=== PATIENT | female | born 1945 | race Caucasian/White ===

== ENCOUNTER → 2019-04-14 | Outpatient (CLI) | payer MEDICARE ==
[~2019-04-14] MED LIST: REGADENOSON 0.4 MG/5 ML DISP.SYRIN. IV ONE
--- NOTE | 2019-04-15 11:38 | RAD ---
MR#: [id number] Date of Study: 04/15/2019 Ordering Physician: HODAN PHILLIPS, Referring Physician: JOHN COPELAND Tech: ASIM Dover, ARRT (R) (N) APPROVED REPORT Test Type: Pharmacological Stress Nurse/Tech: Meg Tang R.N. Test Indications: dyspnea on exertion, diaphoresis Cardiac History: Family history, Diabetes, Hypertension Medications: See Electronic Medical Record Medical History: See Electronic Medical Record Resting ECG: NSR Resting Heart Rate: 63 bpm Resting Blood Pressure: 151/73mmHg Pretest Chest Pain: No chest pain Nurse/Tech Notes S1S2, lungs sound clear Consent: The procedure was explained to the patient in lay terms. Informed consent was witnessed. Robert eout was entered into [facility]. History and Stress Test performed by Meg Tang R.N. Pharm. Details Pharmacologic stress testing was performed using 0.4mg per 5ml of regadenoson given intravenously ove r 7-10 seconds. Stress Symptoms No chest pain or symptoms. heart rate went to 40 right after génesis injection POST EXERCISE Reason for Termination: Infusion complete Target HR: 125 Max HR: 97 bpm Max Blood Pressure: 149/76mmHg Blood Pressure response to exercise: Normal blood pressure response during stress. Chest Pain: No. Arrhythmia: No. ST Change: No. INTERPRETATION Stress EKG Conclusion: Baseline EKG showed sinus rhythm. No ischemic changes at peak stress. No arr hythmias. Imaging Protocol IMAGE PROTOCOL: Rest Tc-99m/stress Tc-99m 2 days Rest: Stress: Viability: Radiopharm.Tc99m YqfsectfiKb82n Sestamibi Dose30.9mCi 32mCi Img Date 04/14/2019 04/15/2019 Inj-Img [id number]. 60min. Rest Admin Site:IV - Right HandAdministrator:ASIM Dover, ARRT (R)(N) Stress Admin Site: IV - Left AntecubitalAdministrator: RT Nandini (R)(N) STRESS DATA End Diast. Vol.109.0mlAv. Heart Rate66.0bpm End Syst. Vol.32.0mlCO Index BSA0.0L/min Myocardial Phuy507.0gEject. Egowzxcg82.0% Stress Rates Pk. Fill Rate1.62EDV/secLVtime Pk. Fill 178.51msec Pk. Empty Rate3.57ESV/secLVtime Pk. Shgxz825.33msec 1/3 Pk. Fill1.28EDV/sec Stress Scores Regional WT0.00Summed WT0.00 Regional WM0.00Summed WM0.00 LV Perfusion scintigraphic images showed rpznx-as-clqypenz reversible defect involving the anteroapical wall consi stent with ischemia. Wall Motion Normal left ventricle systolic function with ejection fraction calculated at 71%. LV Perf. Quant 17 Seg. SSS6.00 17 Seg. SRS2.00 17 Seg. SDS4.00 Stress Defect Extent (% LAD)31.30Rest Defect Extent (% LAD)0.00Rev. Defect Extent (% LAD)27.50 Stress Defect Extent (% LCX) 0.00Rest Defect Extent (% LCX)13.80Rev. Defect Extent (% LCX)0.00 Stress Defect Extent (% RCA)0.00Rest Defect Extent (% RCA)0.00Rev. Defect Extent (% RCA)0.00 Stress Defect Extent (% SUDHEER)13.50Rest Defect Extent (% SUDHEER)2.40Rev. Defect Extent (% SUDHEER)11.10 Conclusion 1. Regadenoson cardioisotope stress test showed qgwka-uy-rsgnxmen amount of anteroapical wall ischemi a. 2. Normal left ventricular systolic function with ejection fraction calculated at 71%. 3. Intermediate risk for cardiac events. Signed by : Braxton Richardson, Electronically Approved : 04/15/2019 11:38:31
== END | disposition home or self-care (01) ==
LOC: NM 08:49
PROVIDERS: ATTEND Internal Medicine Cardiovascular Disease
DX: I25.89 Other forms of chronic ischemic heart disease (principal); E11.9 Type 2 diabetes mellitus without complications; I10 Essential (primary) hypertension
CPT/HCPCS: 78452; A9500

== ENCOUNTER 2019-06-16 09:24 | Observation (INO) | payer MEDICARE ==
[~2019-06-16] VITALS: Ht 165.1 cm; Wt 131.3 kg
[2019-06-16] VITALS (19 sets, daily range): BP systolic 126–197; BP diastolic 63–93
[~2019-06-16 09:24] MED LIST changes: +HYDROmorphone 2 MG/ML VIAL IV PRN; +IV RINGERS,LACTATED 1000ML 1,000 ML IV SCH; +MORPHINE SULFATE 2 MG/ML VIAL. IV PRN; +ONDANSETRON PF 4 MG/2 ML VIAL. IV PRN; +PROCHLORPERAZINE 10 MG/2 ML VIAL. IV PRN; -REGADENOSON 0.4 MG/5 ML DISP.SYRIN. IV ONE; +fentaNYL PF VIAL 100 MCG/2 ML VIAL IV PRN
[2019-06-16 10:27] LABS: CALCIUM 9.4 mg/dL (8.5-10.1); CREATININE 0.9 mg/dL (0.6-1.0); GFR 61.5; POTASSIUM 4.2 mmol/L (3.5-5.1)
[2019-06-16 10:36] LABS: HEMATOCRIT 41.9 % (36.0-47.0); HEMOGLOBIN 14.1 g/dL (12.0-15.5); RED BLOOD COUNT 4.93 x10^6/uL (3.50-5.40); RED CELL DISTRIBUTION WIDTH 15.5 % (11.5-14.5); WHITE BLOOD COUNT 4.7 x10^3/uL (4.0-11.0)
[2019-06-16 10:45] LABS: PROTHROMBIN TIME PATIENT 13.4 SEC (11.7-14.0)
[2019-06-16] MEDS ORDERED: CALC500T30 PO (10:47)
[2019-06-16] MEDS ORDERED: LOSA25TA54 PO (10:47)
[2019-06-16] MEDS ORDERED: GLIP5TAB10 PO (10:47)
[2019-06-16] MEDS ORDERED: CHOL500021 PO (10:47)
[2019-06-16] MEDS ORDERED: LOVA40TA2 PO (10:47)
[2019-06-16] MEDS ORDERED: GLUC100018 PO (10:47)
[2019-06-16] MEDS ORDERED: ASPI-630 PO (10:47)
[2019-06-16] MEDS ORDERED: BLAC160C PO (10:47)
[2019-06-16] MEDS ORDERED: NAPR220C4 PO (10:47)
[2019-06-16] MEDS ORDERED: LEVO88TA4 PO (10:47)
[2019-06-16] MEDS ORDERED: LIDOCAINE 1% Multi-Dose 20 ML VIAL. ONE (11:52)
[2019-06-16] MEDS ORDERED: IOHEXOL 300 MG/ML 100ML VIAL. ONE ×2 (11:52→13:54)
[2019-06-16] MEDS ORDERED: MIDAZOLAM HCL/PF 2 MG/2 ML VIAL. ONE (12:59)
[2019-06-16] MEDS ORDERED: HEPARIN for IV BOLUS 10,000 UNIT/10 ML VIAL. ONE (12:59)
[2019-06-16] MEDS ORDERED: fentaNYL PF VIAL 100 MCG/2 ML VIAL ONE (12:59)
[2019-06-16] MEDS ORDERED: NITROGLYCERIN OINT 1 GM PACKET. ONE (12:59)
[2019-06-16] MEDS ORDERED: VERAPAMIL 5 MG/2 ML VIAL. ONE (13:00)
[2019-06-16] MEDS ORDERED: NITROGLYCERIN 200 MCG/2 ML SYRINGE FOR CATH/VASC LAB. ONE (13:01)
[2019-06-16] MEDS ORDERED: NITROGLYCERIN PREMIX 250 ML IV ONE ×2 (13:06→14:45)
[2019-06-16] MEDS ORDERED: VERAPAMIL 5 MG/2 ML VIAL. IART ONE (13:30)
[2019-06-16] MEDS ORDERED: NITROGLYCERIN 200 MCG/2 ML SYRINGE FOR CATH/VASC LAB. IART ONE (13:30)
[2019-06-16] MEDS ORDERED: LIDOCAINE 1% Multi-Dose 20 ML VIAL. INJ ONE (13:30)
[2019-06-16] MEDS ORDERED: IOHEXOL 300 MG/ML 100ML VIAL. IART ONE (13:30)
[2019-06-16] MEDS ORDERED: MIDAZOLAM HCL/PF 2 MG/2 ML VIAL. IV ONE (13:30)
[2019-06-16] MEDS ORDERED: fentaNYL PF VIAL 100 MCG/2 ML VIAL IV ONE (13:30)
[2019-06-16] MEDS ORDERED: HEPARIN for IV BOLUS 10,000 UNIT/10 ML VIAL. IART ONE (13:30)
[2019-06-16] MEDS ORDERED: BIVALIRUDIN 250 MG VIAL. IV ONE ×2 (13:39→14:15)
[2019-06-16] MEDS ORDERED: LOSARTAN POTASSIUM 25 MG TABLET. PO ONE (14:15)
[2019-06-16] MEDS ORDERED: TICAGRELOR 90 MG TABLET. PO ONE (14:15)
[2019-06-16] MEDS ORDERED: IV NORMAL SALINE 1000ML BAG 1,000 ML IV SCH (14:25)
[2019-06-16] MEDS ORDERED: TICAGRELOR 90 MG TABLET. ONE (14:26)
[2019-06-16] MEDS ORDERED: NITROGLYCERIN SUBLINGUAL 0.4 MG BOTTLE OF 25. SL PRN (14:30)
[2019-06-16] MEDS ORDERED: fentaNYL PF VIAL 100 MCG/2 ML VIAL IV PRN (14:30)
[2019-06-16] MEDS ORDERED: LIDOCAINE 2% 100 MG/5 ML SYRINGE. IV PRN (14:30)
[2019-06-16] MEDS ORDERED: ACETAMINOPHEN 325 MG TABLET. PO PRN (14:30)
[2019-06-16] MEDS ORDERED: 0.9 % SODIUM CHLORIDE 10 ML DISP.SYRIN. IV PRN (14:30)
[2019-06-16] MEDS ORDERED: AMIODARONE 150 MG in IV DEXTROSE 5% 100ML 100 ML IV PRN (14:30)
[2019-06-16] MEDS ORDERED: ATROPINE 0.5 MG/5 ML DISP.SYRINGE. IV PRN (14:30)
--- NOTE | 2019-06-16 14:50 | NUR ---
The patient, JACOB DICKERSON I, 73 y/o, F admitted by HODAN PHILLIPS MD, was given written information regarding hospital policies, unit procedures and contact persons. 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 TR band and arm board in place. NS infusing at 50 mls/hr and nitro gtt at 6 mls/hr. No complaints of chest pain. Patient's spouse at bedside. Call light within reach. Will continue to monitor.
--- NOTE | 2019-06-16 15:29 | CARD ---
MR#: [id number] Date of Study: 06/16/2019 Ordering Physician: HODAN GOMEZ, Referring Physician: HODAN GOMEZ, Tech: JULIO CONNAUKERRYDARREN RTR APPROVED REPORT Procedures Selective coronary angiogram Bare-metal stent placement to the LAD The patient is a 73-year-old female with episodes of progressive dyspnea on exertion. Outpatient work up included a nuclear stress test that showed reversible ischemia in the anterior septal region. Afte r discussion a cardiac catheterization was recommended. Risks and benefits were discussed with the chiquis bedoya. She agreed to proceed. After informed consent was obtained the patient was brought to the heart catheterization lab. The are a of the right radial artery was prepared in the usual manner after an acceptable Tad's test. A Apervita ck catheter system was used to enter the right radial artery, a wire placed and a 6 Mauritanian sheath tereso val over the wire. The standard mixture of antispasm medications and heparin was administered. Using a J-wire, a 6 Mauritanian JL 3.5 catheter was advanced to the ascending aorta. This would not engage the left system cleanly and was replaced with a JL 4 diagnostic catheter which was able to engage the ves maggie and sequential injections in various views were obtained. Using an ocoj-bwj-smob exchange, a 6 Fr ench JR4 diagnostic catheter was used to engage the right coronary system and sequential injections i n various views were obtained. Review of the patient's images showed a subtotal lesion in the mid LAD . He proceeded to revascularize. Angiomax as per protocol was administered. A 6 Mauritanian XB 3.5 guide was used to engage the left system but tended to subselectively engage the left circumflex and clean pictures of the LAD were not able to be obtained. It was therefore replaced with a 6 Mauritanian JL4 guide. This was able to more appropriat natalee engage the LAD. The mid subtotal lesion was crossed with a PT choice wire. It was initially dilat ed with a 3.5 x 15 mm balloon with a series of 6 inflations to a maximum pressure of 8 clive for maximu m time of 15 seconds. Following this a 2.75 x 18 resolute dejuan drug-eluting stent was deployed with o ne inflation at 16 clive for 16 seconds. Residual lesion was 0%. The wire and guiding system were remov ed from the patient. The sheath was removed and the site sealed with a TR band. The patient was moved to the holding area in stable condition. Findings. Hemodynamics. Aortic root pressure of 164/88. Coronaries. Left main. The left main was a very large vessel with a mid 15% lesion. Left anterior descending. The LAD was a moderate size vessel. It had a very proximal 10-15% lesion. F ollowing this there appeared to be a previously placed widely patent stent. In its midportion the LAD had a subtotal lesion. Left circumflex. The left circumflex was a very large and dominant vessel. It had a mid to distal les ion of 15%. Right coronary artery. The right coronary was a moderate to moderately small vessel. It had a proxima l 25-30% lesion. <Conclusion> Severe single-vessel coronary disease with a subtotal lesion in the mid LAD. Mild disease in the left circumflex and right coronary arteries. Successful bare metal stent placement to the mid LAD with a residual lesion of 0%. Signed by : Hodan Gomez MD Electronically Approved : 06/16/2019 15:29:19
--- NOTE | 2019-06-16 16:11 | EKG ---
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
[2019-06-16] MEDS: METOPROLOL TART IMMED RELEASE 25 MG TABLET. PO SCH (21:00)
[2019-06-16] MEDS ORDERED: ATORVASTATIN CALCIUM 20 MG TABLET PO SCH (21:00)
[2019-06-17 03:00] VITALS: BP 132/61
[2019-06-17 03:38] VITALS: BP 164/69
[2019-06-17 07:00] VITALS: BP 158/74
--- NOTE | 2019-06-17 07:21 | EKG ---
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
[2019-06-17] MEDS ORDERED: ASPIRIN ENTERIC COATED 81 MG TABLET.DR. PO SCH (08:00)
[2019-06-17] MEDS: METOPROLOL TART IMMED RELEASE 25 MG TABLET. PO SCH (08:43)
[2019-06-17] MEDS ORDERED: TICAGRELOR 90 MG TABLET. PO SCH (09:00)
[2019-06-17] MEDS ORDERED: LOSARTAN POTASSIUM 50 MG TABLET. PO SCH (09:00)
[2019-06-17] MEDS ORDERED: hydrALAZINE 20 MG/ML VIAL. IVP ONE ×2 (10:00→11:30)
[2019-06-17 11:11] VITALS: BP 206/90
[2019-06-17] MEDS ORDERED: CHLORTHALIDONE 25 MG TABLET. PO ONE (11:30)
[2019-06-17] MEDS ORDERED: LOSARTAN POTASSIUM 50 MG TABLET. PO ONE (11:30)
[2019-06-17] MEDS ORDERED: amLODIPine BESYLATE 5 MG TABLET PO SCH (13:00)
[2019-06-17] MEDS ORDERED: amLODIPine BESYLATE 10 MG TABLET PO SCH (13:15)
[2019-06-17 15:00] VITALS: BP 163/76
[2019-06-17] MEDS ORDERED: ISOSORBIDE MONONITRATE ER 30 MG TAB.ER.24H PO SCH (15:15)
[2019-06-17 15:38] VITALS: BP 176/81
[2019-06-17] MEDS ORDERED: AMLO10TA8 PO (17:00)
[2019-06-17] MEDS ORDERED: ISOS30TA4 PO (17:00)
[2019-06-17] MEDS ORDERED: TICA90TA PO (17:00)
[2019-06-17] MEDS ORDERED: METO25TA4 PO (17:00)
[2019-06-17] MEDS ORDERED: LOSA-73 PO (17:00)
--- NOTE | 2019-06-17 17:02 | DISCH ---
DISCHARGE INSTRUCTIONS Condition on Discharge Condition on Discharge: Stable Activity After Discharge Activity Instructions for Disc: Activity as tolerated Bathing Instructions: Shower-keep dressing dry, No Tub Bath until see (for 2 weeks) Lifting Instructions after Dis: No heavy lifting, No pulling or pushing, Do not lift >10 pounds Driving Instructions after Dis: Do not drive (for 5 days ) Weight Bearing Status after Di: As tolerated (see dignosis specific instru ctions) Diet after Discharge Diet after Discharge: Cardiac Contacting the after DC Call your doctor for: Concerns you may have BAR LUEVANO APRN Jun 17, 2019 17:02
--- NOTE | 2019-06-17 17:14 | PDOC3 ---
Discharge Summary Visit Information Date of Admission: Jun 16, 2019 Date of Discharge: Jun 17, 2019 Admitting Diagnosis Comment: Dyspnea upon exertion Hypertension Hyperlipidemia Diabetes, II Abnormal MPI Final Diagnosis CAD Hypertension Hyperlipidemia Diabetes, II Brief Hospital Course Allergies Allergies Coded Allergies Type Severity Reaction Last Updated Verified No Known Drug Allergies 04/14/19 No Vital Signs Vital Signs Date Time Temp Pulse Resp B/P (MAP) Pulse Ox O2 Delivery O2 Flow Rate FiO2 06/17/19 15:38 81 176/81 06/17/19 15:00 98.1 18 96 Room Air 98.1 06/17/19 08:00 2.0 Lab Results Laboratory Tests Test 06/16/19 10:12 White Blood Count 4.7 x10^3/uL (4.0-11.0) Red Blood Count 4.93 x10^6/uL (3.50-5.40) Hemoglobin 14.1 g/dL (12.0-15.5) Hematocrit 41.9 % (36.0-47.0) Mean Corpuscular Volume 85 fL (79-100) Mean Corpuscular Hemoglobin 29 pg (25-35) Mean Corpuscular Hemoglobin Concent 34 g/dL (31-37) Red Cell Distribution Width 15.5 % (11.5-14.5) Platelet Count 128 x10^3/uL (140-400) Prothrombin Time 13.4 SEC (11.7-14.0) Prothromb Time International Ratio 1.1 (0.8-1.1) Sodium Level 142 mmol/L (136-145) Potassium Level 4.2 mmol/L (3.5-5.1) Chloride Level 106 mmol/L (98-107) Carbon Dioxide Level 27 mmol/L (21-32) Anion Gap 9 (6-14) Blood Urea Nitrogen 15 mg/dL (7-20) Creatinine 0.9 mg/dL (0.6-1.0) Estimated GFR (Cockcroft-Gault) 61.5 Glucose Level 156 mg/dL (70-99) Calcium Level 9.4 mg/dL (8.5-10.1) Brief Hospital Course Ms. Burr is a 73 old female who presented to our office with complaints of progressive dyspnea upon exertion. Underwent stress test that was notable for a mpide-qa-hfsmuoso amount of anteroapical wall ischemia. Patient was brought el ectively for cardiac catheterization, which revealed severe single-vessel coronary disease with a subtotal lesion in the mid LAD along with mild disease in the left circumflex and right coronary arteries. Underwent successful bare metal stent placement to the mid LAD with a residual lesion of 0%. Tolerated overnight without acute complications. Blood pressure elevated post-procedure and was controlled with nitro gtt. Nitro gtt titrated off following addition or oral hypertensives. See med list below for details. No acute events on telemetry. Right radial arteriotomy site soft, clean, and dry. No hematoma. Bilateral neurovascular status intact. Lungs CTA. Patient discharged in stable condition following blood pressure control. Discharge Information Condition at Discharge: Improved Follow Up: Weeks ([address] Major ) Disposition/Orders: D/C to Home Scheduled Aspirin (Aspirin) 81 Mg Tab.chew, 1 TAB PO DAILY for , #30 Ref 3 (Reported) Entered as Reported by: JACOB GORDON RN on 06/16/191046 Last Taken: Unknown Dose on 06/16/19 Last Action: New Order on 06/16/191046 by JACOB GORDON RN Black Cohosh Root Extract (Black Cohosh) 160 Mg Capsule, 160 MG PO DAILY for supplement, (Reported) Entered as Reported by: JACOB GORDON RN on 06/16/191046 Last Taken: Unknown Dose on 06/16/19 Last Action: New Order on 06/16/191046 by JACOB GORDON RN Calcium Carbonate (Calcium) 500 Mg Tablet, 500 MG PO BID for supplement, (Reported) Entered as Reported by: JACOB GORDON RN on 06/16/191046 Last Taken: Unknown Dose on 06/16/19 Last Action: New Order on 06/16/191046 by JACOB GORDON RN Cholecalciferol (Vitamin D3) (D3-50) 50,000 Unit Capsule, 1,000 UNIT PO DAILY for supplement, (Reported) Entered as Reported by: JACOB GORDON RN on 06/16/191046 Last Taken: Unknown Dose on 06/16/19 Last Action: New Order on 06/16/191046 by JACOB GORDON RN Glipizide (Glipizide) 5 Mg Tablet, 0.5 TAB PO DAILY for diabetes, #60 Ref 3 (Reported) Entered as Reported by: JACOB GORDON RN on 06/16/191046 Last Taken: Unknown Dose on 06/15/19 Last Action: New Order on 06/16/191046 by JACOB GORDON RN Glucosamine Sulfate 2KCL (Glucosamine) 1,000 Mg Tablet, 1,000 MG PO DAILY for supplement, (Reported) Entered as Reported by: JACOB GORDON RN on 06/16/191046 Last Taken: Unknown Dose on 06/15/19 Last Action: New Order on 06/16/191046 by JACOB GORDON RN Levothyroxine Sodium (Levothyroxine Sodium) 88 Mcg Tablet, 1 TAB PO DAILY for thyroid, #30 Ref 5 (Reported) Entered as Reported by: JACOB GORDON RN on 06/16/191046 Last Taken: Unknown Dose on 06/16/19 Last Action: New Order on 06/16/191046 by JACOB GORDON RN Losartan Potassium (Losartan Potassium ) 25 Mg Tablet, 25 MG PO DAILY for HYPERTENSION, (Reported) Entered as Reported by: JACOB GORDON RN on 06/16/191046 Last Taken: Unknown Dose on 06/16/19 Last Action: New Order on 06/16/191046 by JACOB GORDON RN Lovastatin (Lovastatin) 40 Mg Tablet, 1 TAB PO DAILY for statin, #30 Ref 5 (Reported) Entered as Reported by: JACOB GORDON RN on 06/16/191046 Last Taken: Unknown Dose on 06/16/19 Last Action: New Order on 06/16/191046 by JACOB GORDON RN Naproxen Sodium (Aleve) 220 Mg Capsule, 220 MG PO BID for pain, (Reported) Entered as Reported by: JACOB GORDON RN on 06/16/191046 Last Taken: Unknown Dose on 06/16/19 Last Action: New Order on 06/16/191046 by JACOB GORDON RN Patient Instructions Patient Instructions GENERAL INSTRUCTIONS: 1. Your dressing should be removed prior to leaving the hospital. 2. It is OK to shower the day after your procedure. 3. If you received stents, be sure to carry your stent information card with you in your wallet/purse at all times. 4. Call the office immediately at [phone] if you notice any fever or if there is redness, worsening tenderness/pain, increased bruising, or drainage from the puncture site. 5. Should you have bleeding from the site, lie down immediately & put pressure on the site. The pressure should be hard enough to stop the bleeding. Have the nearest person call 911. DO NOT try to drive to the ER with active bleeding. 6. If you notice a change in color, coolness to touch, or loss of feeling in the affected extremity, come to the emergency room. Please have someone drive you or call 911 if no one is available. DO NOT drive yourself. 7. If you normally take glucophage (metformin), please do not take this medicine for 48 hours following your procedure. 8. DO NOT STOP TAKING YOUR PLAVIX OR ASPIRIN UNLESS IT IS CLEARED BY A RESPIRATORY ASSISTANT OF YOUR INVESTOR RELATIONS MANAGER AT OUR OFFICE. 9. QUIT SMOKING: the [place] [employer], [place], & [place] have cessation resources available on their websites 10. Please have someone available to drive you home from the hospital as you may be limited by sedation medications given during the procedure. Femoral (Groin) access: 1. Do no lifting, pushing, pulling, bending, stooping, or recurrent stair climbing for 3 days following your procedure. 2. Once past the first 3 days, do not do any HEAVY exertion or lifting for one week following the procedure. No gym workouts, running, lifting greater than a gallon of milk, etc 3. Do not submerge in bath or pool for one week. OK to drive 3 days following your procedure, but if going long distance, do not go alone & take hourly breaks to get out of car and walk around. Radial Artery (Wrist) access: 1. No pushing, pulling, lifting, typing, or anything that requires repetitive use/movement of the affected wrist for 3 days following your procedure. 2. OK to drive the day following your procedure. (This is because of effects of sedating medications.) Call the office at [phone] for any questions or concerns. BAR LUEVANO APRN Jun 17, 2019 17:14
--- NOTE | 2019-06-17 19:07 | NUR ---
Discharge Note: JACOB DICKERSON I [address] [place] [address] Discharge instructions and discharge home medications reviewed with Patient and a copy given. All questions have been answered and understanding verbalized. The following instructions and handouts were given: Heart cath with stent - after care Discontinued IV line Patient discharged to home with self care via wheelchair
== END 2019-06-17 19:13 | disposition home or self-care (01) ==
LOC: SURG 09:24 → 2 NORTH 13:48
PROVIDERS: ADMIT Internal Medicine Cardiovascular Disease; ATTEND Internal Medicine Cardiovascular Disease
DX: I25.10 Atherosclerotic heart disease of native coronary artery without angina pectoris (principal); R06.00 Dyspnea, unspecified; E78.5 Hyperlipidemia, unspecified; I10 Essential (primary) hypertension; E11.9 Type 2 diabetes mellitus without complications; I38 Endocarditis, valve unspecified; R60.0 Localized edema; Z79.82 Long term (current) use of aspirin; Z79.84 Long term (current) use of oral hypoglycemic drugs; Z79.899 Other long term (current) drug therapy; Z98.61 Coronary angioplasty status
CPT/HCPCS: 36415; 80048; 85027; 85610; 93005; 93454; 96365; 96366; 96375; 96376; C1725; C1769; C1874; C1887; C1892; C9600; G0378; G0379; J0360; J0583; J1644; J2250; J3010; J3490; J7030; Q9967; 92928; 99152; 99153

== ENCOUNTER 2020-11-11 20:19 | Emergency (ER) | payer MEDICARE ==
[~2020-11-11] VITALS: Ht 165.1 cm; Wt 122.7 kg
[~2020-11-11 20:19] MED LIST changes: +AMLO-187 PO; +ASPI-630 PO; +BLAC160C PO; +CALC500T30 PO; +CHOL500021 PO; +GLIP5TAB10 PO; +GLUC100018 PO; -HYDROmorphone 2 MG/ML VIAL IV PRN; +ISOS30TA68 PO; -IV RINGERS,LACTATED 1000ML 1,000 ML IV SCH; +LEVO88TA4 PO; +LOSA-73 PO; +LOSA25TA54 PO; +LOVA40TA2 PO; +METO25TA4 PO; -MORPHINE SULFATE 2 MG/ML VIAL. IV PRN; +NAPR220C4 PO; -ONDANSETRON PF 4 MG/2 ML VIAL. IV PRN; -PROCHLORPERAZINE 10 MG/2 ML VIAL. IV PRN; +TICA90TA PO; -fentaNYL PF VIAL 100 MCG/2 ML VIAL IV PRN
--- NOTE | 2020-11-11 21:24 | PHYS DOC ---
Past Medical History Smoking Status: Never Smoker Adult General Chief Complaint Chief Complaint: LOWER EXTREMITY EDEMA HPI HPI Patient is a 75 year old with a known past medical history includes hyperlipidemia, hypertension and diabetes now presents emergency department complaining of new onset of left lower extremity pain and swelling. Patient states that she has been having difficulty with what appears to be an infected left great toe for the last 2 weeks. Over the last 48 hours is developed worsening sensation of pain and swelling surrounding the entire left lower extremity with correlated erythema. Patient states that she spoke to her primary care physician today who recommended her come to the emergency department for evaluation. Patient denies any associated fever, chills, nausea, vomiting, chest pain or shortness of breath. Review of Systems Review of Systems Constitutional: Denies fever or chills [] Eyes: Denies change in visual acuity, redness, or eye pain [] HENT: Denies nasal congestion or sore throat [] Respiratory: Denies cough or shortness of breath [] Cardiovascular: No additional information not addressed in HPI [] GI: Denies abdominal pain, nausea, vomiting, bloody stools or diarrhea [] : Denies dysuria or hematuria [] Musculoskeletal: Denies back pain or joint pain [] Integument: Denies rash or skin lesions [] Neurologic: Denies headache, focal weakness or sensory changes [] Endocrine: Denies polyuria or polydipsia [] All other systems were reviewed and found to be within normal limits, except as documented in this note. Current Medications Current Medications Current Medications Medications (Trade) Dose Ordered Sig/Luly Start Time Stop Time Status Last Admin Dose Admin Ceftriaxone Sodium (Rocephin) 1 gm 1X ONCE 11/11/20 21:30 11/11/20 21:31 DC 11/11/20 21:30 1 GM Allergies Allergies Allergies Coded Allergies Type Severity Reaction Last Updated Verified No Known Drug Allergies 04/14/19 No Physical Exam Physical Exam Constitutional: Well developed, well nourished, no acute distress, non-toxic appearance. [] HENT: Normocephalic, atraumatic, bilateral external ears normal, oropharynx moist, no oral exudates, nose normal. [] Eyes: PERRLA, EOMI, conjunctiva normal, no discharge. [] Neck: Normal range of motion, no tenderness, supple, no stridor. [] Cardiovascular:Heart rate regular rhythm, no murmur [] Lungs & Thorax: Bilateral breath sounds clear to auscultation [] Abdomen: Bowel sounds normal, soft, no tenderness, no masses, no pulsatile masses. [] Skin: Warm, dry, no erythema, no rash. [] Back: No tenderness, no CVA tenderness. [] Extremities: Significant left lower extremity tenderness] to the mid foreleg with erythema, no cyanosis, no clubbing, ROM intact, no edema. [] Neurologic: Alert and oriented X 3, normal motor function, normal sensory function, no focal deficits noted. [] Psychologic: Affect normal, judgement normal, mood normal. [] Current Patient Data Lab Values Laboratory Tests Test 11/11/20 21:22 White Blood Count 8.6 x10^3/uL (4.0-11.0) Red Blood Count 4.34 x10^6/uL (3.50-5.40) Hemoglobin 12.3 g/dL (12.0-15.5) Hematocrit 36.5 % (36.0-47.0) Mean Corpuscular Volume 84 fL (79-100) Mean Corpuscular Hemoglobin 28 pg (25-35) Mean Corpuscular Hemoglobin Concent 34 g/dL (31-37) Red Cell Distribution Width 16.3 % (11.5-14.5) H Platelet Count 105 x10^3/uL (140-400) L Neutrophils (%) (Auto) 87 % (31-73) H Lymphocytes (%) (Auto) 7 % (24-48) L Monocytes (%) (Auto) 6 % (0-9) Eosinophils (%) (Auto) 1 % (0-3) Basophils (%) (Auto) 0 % (0-3) Neutrophils # (Auto) 7.4 x10^3/uL (1.8-7.7) Lymphocytes # (Auto) 0.6 x10^3/uL (1.0-4.8) L Monocytes # (Auto) 0.5 x10^3/uL (0.0-1.1) Eosinophils # (Auto) 0.1 x10^3/uL (0.0-0.7) Basophils # (Auto) 0.0 x10^3/uL (0.0-0.2) Segmented Neutrophils % 75 % (35-66) H Band Neutrophils % 12 % (0-9) H Lymphocytes % 7 % (24-48) L Monocytes % 5 % (0-10) Basophils % 1 % (0-3) Platelet Estimate Decreased (ADEQUATE) D-Dimer (Trisha) 1.15 ug/mlFEU (0.00-0.50) H Sodium Level 134 mmol/L (136-145) L Potassium Level 3.6 mmol/L (3.5-5.1) Chloride Level 100 mmol/L (98-107) Carbon Dioxide Level 26 mmol/L (21-32) Anion Gap 8 (6-14) Blood Urea Nitrogen 14 mg/dL (7-20) Creatinine 1.0 mg/dL (0.6-1.0) Estimated GFR (Cockcroft-Gault) 54.2 BUN/Creatinine Ratio 14 (6-20) Glucose Level 211 mg/dL (70-99) H Calcium Level 9.2 mg/dL (8.5-10.1) Total Bilirubin 0.6 mg/dL (0.2-1.0) Aspartate Amino Transferase (AST) 41 U/L (15-37) H Alanine Aminotransferase (ALT) 54 U/L (14-59) Alkaline Phosphatase 80 U/L (46-116) Total Protein 6.3 g/dL (6.4-8.2) L Albumin 2.9 g/dL (3.4-5.0) L Albumin/Globulin Ratio 0.9 (1.0-1.7) L Laboratory Tests 11/11/20 21:22 Laboratory Tests 11/11/20 21:22 EKG EKG [] Radiology/Procedures Radiology/Procedures [] Course & Med Decision Making Course & Med Decision Making Pertinent Labs and Imaging studies reviewed. (See chart for details) 75F presenting with new onset of left lower extremity pain and swelling is most consistent with acute cellulitis. Will obtain labs to determine the severity of the and initiate treatment with IV antibiotics and obtain an x-ray to make sure there is no evidence of osteomyelitis. DVT is also in the differential but is less likely, will obtain a D-dimer to rule it out. Ddimer positive. No signficant leukocytosis. US obtained negative for DVT. Will discharge patient on outpatient course of PO abx Dragon Disclaimer Dragon Disclaimer This electronic medical record was generated, in whole or in part, using a voice recognition dictation system. Departure Departure Impression: Primary Impression: Cellulitis Disposition: 01 DC HOME SELF CARE/HOMELESS Condition: GOOD Referrals: JERMAN MICHAELS MD (PCP) Patient Instructions: Cellulitis Additional Instructions: EMERGENCY DEPARTMENT GENERAL DISCHARGE INSTRUCTIONS Thank you for coming to [facility] Emergency Department (ED) today and trusting us with you care. We trust that you had a positive experience in our Emergency Department. If you wish to speak to the department management, you may call the Director at [phone]. YOUR FOLLOW UP INSTRUCTIONS ARE FOLLOWS: 1. Do you have a private Doctor? If you do not have a private doctor, please ask for a resource list of physicians or clinics that may be able to assist you with follow up care. 2. The Emergency Physicain has interpreted your x-rays. The X-Ray specialist will also review them. If there is a change in the findings, you will be notified in 48 hours when at all possible. 3. A lab test or culture has been done, your results will be reviewed and you will be notified if you need a change in treatment. ADDITIONAL INSTRUCTIONS AND INFORMATION: 1. Your care today has been supervised by a physician who is specially trained in emergency care. Many problems require more than one evaluation for a complete diagnosis a nd treatment. We recommend that you schedule your follow up appointment as recommended to ensure complete treatment of you illness or injury. If you are unable to obtain follow up care and continue to have a problem, or if your condition worsens, we recommend that you return to the ED. 2. We are not able to safely determine your condition over the phone nor are we able to give sound medical advice over the phone. For these safety reasons, if you call for medical advice we will ask you to come to the ED for further evaluation. 3. If you have any questions regarding these discharge instructions please call the ED at [phone]. SAFETY INFORMATION: In the interest of safety, wellness, and injury prevention; we encourage you to wear your sealbelt, if you smoke; quite smoking, and we encourage family to use a protective helmet for bicycling and other sporting events that present an increased risk for head injury. IF YOUR SYMPTOMS WORSEN OR NEW SYMPTOMS DEVELOP, OR YOU HAVE CONCERNS ABOUT YOUR CONDITION; OR IF YOUR CONDITION WORSENS WHILE YOU ARE WAITING FOR YOUR FOLLOW UP APPOINTMENT; EITHER CONTACT YOUR PRIMARY CARE DOCTOR, THE PHYSICIAN WHOSE NAME AND NUMBER YOU WERE GIVEN, OR RETURN TO THE ED IMMEDIATELY. Scripts Cephalexin (CEPHALEXIN) 500 Mg Tablet 1 TAB PO QID for 7 Days, #28 TAB Prov: EDNA SMITH MD 11/12/20 EDNA SMITH MD Nov 11, 2020 21:24
[2020-11-11] MEDS ORDERED: cefTRIAXone IV Push 1 GM VIAL. IVP ONE (21:30)
[2020-11-11 21:38] LABS: BASO % 0 % (0-3); EOS # 0.1 x10^3/uL (0.0-0.7); EOS % 1 % (0-3); HEMATOCRIT 36.5 % (36.0-47.0); HEMOGLOBIN 12.3 g/dL (12.0-15.5); LYMPH # 0.6 x10^3/uL (1.0-4.8); LYMPH % 7 % (24-48); MEAN CORPUSCULAR HEMOGLOBIN 28 pg (25-35); MEAN CORPUSCULAR HGB CONC 34 g/dL (31-37); MEAN CORPUSCULAR VOLUME 84 fL (79-100); MONO # 0.5 x10^3/uL (0.0-1.1); MONO % 6 % (0-9); NEUT # 7.4 x10^3/uL (1.8-7.7); NEUT % 87 % (31-73); PLATELET COUNT 105 x10^3/uL (140-400); RED BLOOD COUNT 4.34 x10^6/uL (3.50-5.40); RED CELL DISTRIBUTION WIDTH 16.3 % (11.5-14.5); WHITE BLOOD COUNT 8.6 x10^3/uL (4.0-11.0)
--- NOTE | 2020-11-11 21:47 | RAD ---
Exam: Left foot 3 views INDICATION: Erythema TECHNIQUE: Frontal, lateral and oblique views of the left foot Comparisons: None FINDINGS: Diffuse soft tissue swelling at the ankle and foot. Bone mineralization is normal. No acute or healed fractures. Joint spaces are well-maintained. IMPRESSION: Few soft tissue swelling at the ankle and foot without underlying osseous abnormality identified. Cor relate for cellulitis. Electronically signed by: Tenzin Henry MD (11/11/2020 9:44 PM) IRISH
[2020-11-11 21:57] LABS: CALCIUM 9.2 mg/dL (8.5-10.1); GFR 54.2; POTASSIUM 3.6 mmol/L (3.5-5.1)
[2020-11-11 22:04] LABS: ALBUMIN 2.9 g/dL (3.4-5.0); ALBUMIN/GLOBULIN RATIO 0.9 (1.0-1.7); TOTAL BILIRUBIN 0.6 mg/dL (0.2-1.0); TOTAL PROTEIN 6.3 g/dL (6.4-8.2)
[2020-11-12 01:09] LABS: % BANDS 12 % (0-9); % BASOS 1 % (0-3); % LYMPHS 7 % (24-48); % MONOS 5 % (0-10); % SEGS 75 % (35-66)
[2020-11-12 01:10] LABS: PLT ESTIMATE DECREASED (ADEQUATE)
[2020-11-12] MEDS ORDERED: CEPH500T PO ×2 (01:40→02:08)
[2020-11-12 02:10] VITALS: BP 133/76
--- NOTE | 2020-11-12 02:17 | RAD ---
Left lower extremity venous duplex study 11/12/2020 Clinical History: Left leg swelling. Technique: Using a combination of real time ultrasound imaging and color-flow and pulse Doppler imagi ng techniques along with graded compression and augmentation, duplex evaluation of the deep venous sy stem of the left lower extremity was performed. Multiple images were obtained. Findings: There is no sonographic evidence of deep venous thrombosis involving the visualized deep ve nous structures of the left lower extremity. Impression: Negative study. Electronically signed by: Ishaan Del Rio MD (11/12/2020 2:15 AM) [id number]
--- NOTE | 2020-11-12 06:33 | EKG ---
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
[2020-11-17] MEDS ORDERED: AMOX1TAB61 PO (13:31)
== END 2020-11-12 02:15 | disposition home or self-care (01) ==
LOC: ER 20:19
DX: L03.116 Cellulitis of left lower limb (principal)
CPT/HCPCS: 99285; J0696; 36415; 73630; 80053; 85007; 85025; 85379; 87040; 93005; 93971; 96374

== ENCOUNTER → 2021-04-25 | Outpatient (CLI) | payer MEDICARE ==
[2020-11-17 15:00] VITALS: BP 106/67
[~2021-04-25] MED LIST changes: +AMOX1TAB61 PO; +CEPH500T PO
--- NOTE | 2021-04-25 15:13 | RAD ---
MR#: [id number] Date of Study: 04/25/2021 Ordering Physician: HODAN PHILLIPS, Referring Physician: HODAN PHILLIPS, Tech: Navneet Bain MBA, RDMS, RVT, RDCS, RTR APPROVED REPORT Patient Location : OUT-PATIENT Indications Lower Extremity Edema : Bilateral Findings Limited grayscale images the bilateral saphenofemoral junctions are grossly unremarkable. Spectral w aveforms and color Doppler not reveal any obvious evidence of reflux in the bilateral greater and les ser saphenous veins. The right great saphenous vein measures approximately 4 mm in the left great saphenous vein measures approximately 6 mm. Critical Notification Critical Value: No <Conclusion> 1. Negative for reflux in the bilateral greater and lesser saphenous veins Signed by : Eligio Mortensen, Electronically Approved : 04/25/2021 15:12:53
--- NOTE | 2021-04-25 15:14 | RAD ---
MR#: [id number] Date of Study: 04/25/2021 Ordering Physician: HODAN PHILLIPS, Referring Physician: HODAN PHILLIPS, Tech: Navneet Bain MBA, RDMS, RVT, RDCS, RTR APPROVED REPORT Patient Location: OUT-PATIENT Indications Rest Pain:Bilaterally Edema VELOCITY AND DOPPLER WAVEFORM ANALYSIS RIGHT cm/secWaveformSeverity LEFT cm/secWaveform Severity dCFA 141.0TriphasicdCFA 134.0Triphasic Prof Fem Art. 54.0BiphasicProf Fem Art. 61.0Biphasic Fem Art Prox. 128.0TriphasicFem Art Prox. 117.0Triphasic Fem Art Mid. 122.0TriphasicFem Art Mid. 124.0Triphasic Fem Art Dist. 116.0TriphasicFem Art Dist. 131.0Triphasic Pop Art(Fossa) 109.0TriphasicPop Art(AK) 105.0Triphasic DIP TUBE ASSEMBLER MACHINE Prox. 75.0TriphasicPTA Prox. 88.0Triphasic DIP TUBE ASSEMBLER MACHINE Dist. 56.0TriphasicPTA Dist. 101.0Triphasic Per Art Mid. 66.0TriphasicPer Art Mid. 47.0Triphasic GINGER Prox. 77.0TriphasicATA Prox. 78.0Triphasic DPA 97TriphasicDPA 51Triphasic Findings Grayscale images the bilateral lower extremity arterial vessels demonstrate mild diffuse atherosclero sis. Spectral waveforms and color Doppler are grossly within normal limits without any focal high-grade st enosis identified. There are triphasic and biphasic waveforms throughout with three-vessel runoff be low the knee. Critical Notification Critical Value: No <Conclusion> 1. No significant lower extremity arterial disease bilaterally Signed by : Eligio Mortensen, Electronically Approved : 04/25/2021 15:13:55
== END ==
LOC: US 12:49
PROVIDERS: ATTEND Internal Medicine Cardiovascular Disease
DX: I70.203 Unspecified atherosclerosis of native arteries of extremities, bilateral legs (principal); R60.0 Localized edema
CPT/HCPCS: 93925; 93970

== ENCOUNTER 2022-02-24 20:51 | Emergency (ER) | payer MEDICARE ==
[~2022-02-24] VITALS: Ht 160 cm; Wt 131.0 kg
[2022-02-24] MEDS ORDERED: CEPH500C PO (21:36)
--- NOTE | 2022-02-24 21:37 | PHYS DOC ---
Past Medical History Past Medical History: CAD, Diabetes-Type II, High Cholesterol, Hypertension, Hypothyroid Additional Past Medical Histor: Podiatry ISSUES WITH FEET/TOES Past Surgical History: Other Additional Past Surgical Histo: STENT Smoking Status: Never Smoker Alcohol Use: None General Adult EDM: Chief Complaint: LOWER EXT PAIN HPI: HPI: Patient is a 76 year old female who presents with purulent drainage from the great toe of the left foot. Patient states that she called her respiratory care assistant when she noticed purulent drainage on her sock for the second time today. They advised she seek evaluation to obtain a prescription for antibiotics, and that they'd follow up with her after the holiday. Patient denies fever, chills, weakness, pain, erythema or any other complaints at this time. Review of Systems: Review of Systems: ROS negative or noncontributory except as mentioned in HPI. Heart Score: C/O Chest Pain: No Allergies: Allergies: Allergies Coded Allergies Type Severity Reaction Last Updated Verified No Known Drug Allergies 04/14/19 No Physical Exam: PE: Constitutional: Obese, no acute distress, non-toxic appearance. HENT: Normocephalic, atraumatic, bilateral external ears normal, nose normal. Eyes: EOMI, conjunctiva normal, no discharge. Neck: Normal range of motion, no stridor. Thorax: Equal thoracic expansion, no increased work of breathing. Skin: 1 cm area of induration at the distal great toe of the left foot without erythema or fluctuance. Skin otherwise warm, dry, no erythema, no rash. Extremities: Bilateral feet callused and multiple areas with thickened and yellow toenails. Extremities otherwise no tenderness, no cyanosis, ROM intact, no edema. Neurologic: Alert and oriented x4, normal motor function, normal sensory function, no focal deficits noted. Current Patient Data: Vital Signs: Vital Signs Date Time Temp Pulse Resp B/P (MAP) Pulse Ox O2 Delivery O2 Flow Rate FiO2 02/24/22 21:44 56 16 124/73 (90) Room Air 02/24/22 21:05 97.0 68 20 166/77 (106) 97 Room Air 97.0 Course & Med Decision Making: Course & Med Decision Making Pertinent Labs and Imaging studies reviewed. (See chart for details) Patient prescribed oral course of Keflex for cellulitis of the left great toe. Patient already has appointment scheduled with her respiratory care assistant. She had is advised to keep the appointment. Return precautions were provided. Patient understands and is agreeable to discharge plan. Ramírez Disclaimer: Ramírez Disclaimer: This electronic medical record was generated, in whole or in part, using a voice recognition dictation system. Departure Departure Impression: Primary Impression: Cellulitis of great toe of left foot Disposition: HOME / SELF CARE / HOMELESS Condition: STABLE Referrals: JERMAN MICHAELS MD (PCP) Patient Instructions: Cellulitis, [id number] Additional Instructions: EMERGENCY DEPARTMENT GENERAL DISCHARGE INSTRUCTIONS Thank you for coming to [facility] Emergency Department (ED) today and trusting us with you care. We trust that you had a positive experience in our Emergency Department. If you wish to speak to the department management, you may call the director at . YOUR FOLLOW UP INSTRUCTIONS ARE FOLLOWS: 1. Follow up with your primary care doctor. If you do not have a primary doctor, please ask for a resource list of physicians or clinics that may be able to assist you with follow up care. 2. The emergency provider has interpreted your imaging studies, if any were ordered. The radiology licensing specialist also reviewed them. If there is a change in the findings, you will be notified in 48 hours when at all possible. 3. If a lab test or culture has been done, your results will be reviewed and you will be notified if you need a change in treatment. 4. Follow instructions verbalized to you and refer to the printouts if needed. ADDITIONAL INSTRUCTIONS AND INFORMATION: 1. Your care today has been supervised by a physician who is specially trained in emergency care. Many problems require more than one evaluation for a complete diagnosis and treatment. We recommend that you schedule your follow up appointment as recommended to ensure complete treatment of you illness or injury. If you are unable to obtain follow up care and continue to have a problem, or if your condition worsens, we recommend that you return to the ED. 2. We are not able to safely determine your condition over the phone nor are we able to give sound medical advice over the phone. For these safety reasons, if you call for medical advice we will ask you to come to the ED for further evaluation. 3. If you have any questions regarding these discharge instructions please call the ED at . SAFETY INFORMATION: In the interest of safety, wellness, and injury prevention; we encourage you to wear your seat belt, if you smoke; quite smoking, and we encourage family to use a protective helmet for bicycling and other sporting events that present an increased risk for head injury. IF YOUR SYMPTOMS WORSEN OR NEW SYMPTOMS DEVELOP, OR YOU HAVE CONCERNS ABOUT YOUR CONDITION; OR IF YOUR CONDITION WORSENS WHILE YOU ARE WAITING FOR YOUR FOLLOW UP APPOINTMENT; EITHER CONTACT YOUR PRIMARY CARE DOCTOR, THE PHYSICIAN WHOSE NAME AND NUMBER YOU WERE GIVEN, OR RETURN TO THE ED IMMEDIATELY. Scripts Cephalexin (KEFLEX) 500 Mg Capsule 1 CAP PO BID for 5 Days, #10 CAP 0 Refills Prov: FAMILIA BENNETT 02/24/22 FAMILIA BENNETT February 24, 2022 21:37
[2022-02-24 21:44] VITALS: BP 124/73
[2022-02-24] MEDS ORDERED: CEPHALEXIN 250 MG CAPSULE. PO ONE (21:45)
== END 2022-02-24 22:00 | disposition home or self-care (01) ==
LOC: ER 20:51
DX: L03.032 Cellulitis of left toe (principal); I25.10 Atherosclerotic heart disease of native coronary artery without angina pectoris; E11.9 Type 2 diabetes mellitus without complications; E78.00 Pure hypercholesterolemia, unspecified; I10 Essential (primary) hypertension; E03.9 Hypothyroidism, unspecified
CPT/HCPCS: 99284